=== PATIENT | female | born 1980 | race Caucasian/White ===

== ENCOUNTER → 2023-05-05 | Outpatient (CLI) | payer BC ==
--- NOTE | 2023-05-05 10:12 | MM ---
Reason for Exam: Additional evaluation requested from prior study. Patient History: Menarche at age 14. First Full-Term at age 28. Risk Values: Holly 5 year model risk: 0.6%. NCI Lifetime model risk: 11.1%. Tissue Density: The breast tissue is heterogeneously dense. This may lower the sensitivity of mammography. Findings: Analyzed By CAD. 7 mm circumscribed area of nodularity right breast middle depth outer aspect, probably in the upper outer quadrant persists on spot 3-D CC and 3-D CC rolled views. Further ultrasound evaluation is recommended. No persisting abnormality on additional views of the central portion of the left breast. Findings compatible with superimposition shadow. Overall Assessment: Incomplete: need additional imaging evaluation, BI-RAD 0 Management: Diagnostic Breast Ultrasound of the right breast. Electronically signed and approved by: Jignesh Walton M.D. Radiologist
--- NOTE | 2023-05-05 10:44 | USB ---
Reason for Exam: Follow-up at short interval from prior study. Patient History: Menarche at age 14. First Full-Term at age 28. Risk Values: Holly 5 year model risk: 0.6%. NCI Lifetime model risk: 11.1%. Technique: Method: Targeted. Findings: The upper outer quadrant of the right breast, the axilla of the right breast and the retroareolar of the right breast were scanned. Targeted ultrasound upper outer quadrant right breast 9:00 to 12:00 including scanning of the subareolar region and axilla. * At the 10:00 position, 4 cm from the nipple, there is a oval, circumscribed, benign cyst measuring 8 x 6 x 3 mm, probable mammographic correlate. Six-month follow-up mammogram to ensure stability of the nodule. * In the subareolar region, there is a 6 x 5 x 5 mm cyst. * No other solid or cystic lesion or axillary lymphadenopathy. Overall Assessment: Probably benign, BI-RAD 3 Management: Diagnostic Mammogram of the right breast in 6 months. A clinical breast exam by your physician is recommended on an annual basis and results should be correlated with mammographic findings. This exam should not preclude additional follow-up of suspicious palpable abnormalities. Results were given to the patient verbally at the time of exam. Electronically signed and approved by: Jignesh Walton M.D. Radiologist
== END | disposition home or self-care (01) ==
LOC: RADMAMWWP 09:26
PROVIDERS: ATTEND Family Medicine
DX: N60.01 Solitary cyst of right breast (principal); R92.333 Mammographic heterogeneous density, bilateral breasts
CPT/HCPCS: 77062; 77066